=== PATIENT | female | born 1990 | race African-American/Black ===

== ENCOUNTER 2017-01-24 20:51 | Emergency (ER) | payer SELFPAY ==
[~2017-01-24] VITALS: Ht 170.2 cm; Wt 118.8 kg
[2017-01-24 20:53] VITALS: BP 144/86
[2017-01-24] MEDS ORDERED: OXYcodone/APAP 5/325MG TABLET ONE (21:29)
[2017-01-24] MEDS ORDERED: OXYcodone/APAP 5/325MG TABLET PO ONE (21:30)
[2017-01-24] MEDS ORDERED: ONDANSETRON ODT 4 MG ONE (21:30)
[2017-01-24] MEDS ORDERED: ONDANSETRON ODT 4 MG PO ONE (21:30)
== END 2017-01-24 22:43 | disposition home or self-care (01) ==
LOC: ED 21:56
DX: M54.5 Low back pain (principal); M41.24 Other idiopathic scoliosis, thoracic region
CPT/HCPCS: 72072; 93005; 99284; Q0162